=== PATIENT | female | born 1965 | race Caucasian/White ===

== ENCOUNTER 2017-11-03 12:22 | Emergency (ER) | payer OTHER ==
--- NOTE | 2017-11-03 14:12 | CT SCAN REPORT ---
EXAMINATION: CT HEAD WITHOUT CONTRAST CLINICAL INFORMATION: Headache for 2 days. COMPARISON: None. TECHNIQUE: Contiguous axial imaging was performed from the skull base to vertex without intravenous administration of contrast. DLP: 699 mGy-cm. FINDINGS: There is no intracranial hemorrhage, large infarction, or mass lesion. There is no extra-axial collection. The ventricles are normal in size and configuration without evidence of hydrocephalus. The visualized paranasal sinuses and mastoid air cells are clear. IMPRESSION: No acute intracranial abnormality.
--- NOTE | 2017-11-03 15:38 | ED HEADACHE COMPLAINT ---
History of Present Illness General Chief Complaint: Headache Stated Complaint: PEREZ X 2 DAYS Source: patient, family Exam Limitations: no limitations Vital Signs & Intake/Output Vital Signs & Intake/Output Vital Signs Date Time Temp Pulse Resp B/P B/P Pulse O2 O2 Flow FiO2 Mean Ox Delivery Rate 11/03 1604 98.1 11/03 1514 98.1 71 16 131/82 99 Room Air 11/03 1228 97.2 62 16 151/101 97 Room Air Allergies Coded Allergies: No Known Allergies (11/03/17) Triage Note: PT TO ED WITH C/O HEADACHE X 2 DAYS. +NAUSEA. DENIES PHOTOSENSITIVITY. REPORTS "BLOW TO HEAD" IN MAR 2017 WHICH SHE WAS NEVER EVALUATED FOR. TAKING MOTRIN W/O RELIEF. NEURO CHECK INTACT. Triage Nurses Notes Reviewed? yes Onset: Gradual Duration: day(s): Timing: recent history HPI: 52yo female presents to ED complaining of persistent headache since last night. Patient described headache as occipital area radiating up scalp to behind eyes bilaterally. Patient states she has had similar headache twice before within the past few months however headaches have never persisted for this long. Patient has tried tylenol, ASA, ibuprofen without relief. Patient reports associated nausea with one episode of vomiting this morning. She did have a head injury 7 months ago however no recent fall or head trauma. Patient denies blurry vision, fevers, chills, rash, paresthesias. (Miya Shields) Reconcile Medications Fiorinal (Fiorinal 50-325-40 MG Capsule) 50 MG-325 MG-40 MG CAPSULE 1 CAP PO BID PRN HEADACHE Trazodone HCl 50 MG TABLET 1 TAB PO QPM SLEEP (Reported) (Sudhakar Fox DO) Past History Travel History Traveled to [place] past 21 day No Medical History Any Pertinent Medical History? see below for history Musculoskeletal: CHRONIC BACK PAIN Psychiatric: insomnia Surgical History Surgical History: non-contributory Psychosocial History What is your primary language Northern Irish Tobacco Use: Never used Family History Hx Contributory? No (Miya Shields) Review of Systems Review of Systems Constitutional: Reports: no symptoms. Eyes: Reports: no symptoms. Ears, Nose, Throat, Mouth: Reports: no symptoms. Respiratory: Reports: no symptoms. Cardiovascular: Reports: no symptoms. Gastrointestinal/Abdominal: Reports: see HPI. Genitourinary: Reports: no symptoms. Musculoskeletal: Reports: no symptoms. Skin: Reports: no symptoms. Neurological/Psychological: Reports: see HPI. Hematologic/Endocrine: Reports: no symptoms. Endocrine: Reports: no symptoms. Immunologic/Allergic: Reports: no symptoms. All Other Systems: Reviewed and Negative (Brisa GANNON,Miya Carr) Physical Exam Physical Exam General Appearance: well developed/nourished, no apparent distress, alert, awake Head: atraumatic, normal appearance Eyes: Bilateral: normal appearance, PERRL, EOMI. Ears, Nose, Throat: normal pharynx, normal ENT inspection, hearing grossly normal Neck: normal inspection, supple, full range of motion Respiratory: normal breath sounds, no respiratory distress, lungs clear Cardiovascular: regular rate/rhythm Back: normal inspection, normal range of motion Extremities: normal inspection, normal range of motion Psychiatric: awake, alert, oriented x 3 Cranial Nerves: normal hearing, normal speech, PERRL, CN II-XII intact Coordination/Gait: normal finger to nose, normal gait Motor/Sensory: no motor/sensory deficits Skin: intact, normal color, warm/dry Core Measures Sepsis Present: No Sepsis Focused Exam Completed? No (Miya Shields) Progress Differential Diagnosis: cluster PEREZ, encephalitis, IC mass/tumor, intracranial Hem., meningitis, migraine PEREZ, musculoskeletal pain, sinusitis, subarach. Hem., tension PEREZ Plan of Care: Current Medications Sig/Denys Start time Last Medication Dose Stop Time Status Admin Acetaminophen 1,000 MG ONCE ONE 11/03 1545 UNVr (Ofirmev) 11/03 1559 N/A 1 UNIT (No Carrier) Ketorolac 30 MG ONCE ONE 11/03 1545 UNVr Tromethamine 11/03 154 (Toradol) Metoclopramide HCl 10 MG ONCE ONE 11/03 1545 UNVr (Reglan) 11/[address] scan is normal. Patient is neurologically intact, no focal neurologic deficit, she ambulates with a steady gait, she answers questions readily. Patient reports improvement in her headache following IV medications. She is requesting to go home at this time. Symptoms are most consistent with migraine headache. No fevers or rash to indicate menegitis. Patient given prescription of Fioricet that she can take at home. I recommend the patient follow up with a neurologist, she states she will go through her primary care doctor for a referral. Patient agrees with the plan of care. Diagnostic Imaging: Viewed by Me: CT Scan. Discussed w/RAD: CT Scan. Radiology Impression: PATIENT: SWATHI FISHER PRESENT AGE: 52 PATIENT ACCOUNT NO: [id number] : 65 LOCATION: [facility] ORDERING PHYSICIAN: Noble GANNON SERVICE DATE: 11/03/17 EXAM TYPE: CAT - CT HEAD WO IV CONTRAST EXAMINATION: CT HEAD WITHOUT CONTRAST CLINICAL INFORMATION: Headache for 2 days. COMPARISON: None. TECHNIQUE: Contiguous axial imaging was performed from the skull base to vertex without intravenous administration of contrast. DLP: 699 mGy-cm. FINDINGS: There is no intracranial hemorrhage, large infarction, or mass lesion. There is no extra-axial collection. The ventricles are normal in size and configuration without evidence of hydrocephalus. The visualized paranasal sinuses and mastoid air cells are clear. IMPRESSION: No acute intracranial abnormality. DICTATED BY: Mimi Stephens MD DATE/TIME DICTATED:11/03/171404 APPLIANCE ADJUSTER:FANNY DATE/TIME TRANSCRIBED:11/03/171404 CONFIDENTIAL, DO NOT COPY WITHOUT APPROPRIATE AUTHORIZATION. <Electronically signed in Other Vendor System> SIGNED BY: Mimi Stephens MD 11/03/17 1412 (Brisa GANNON,Miya Carr) Departure Departure Disposition: HOME OR SELF CARE Condition: Stable Clinical Impression Primary Impression: Headache Referrals: Carrie Reynoso MD (PCP/Family) Additional Instructions: To worsen as prescribed as needed for a headache. Follow up with your primary care doctor for referral to neurology. Return if worsening symptoms or concerns. Please note that there might be incidental findings in your evaluation that are unrelated to the current emergency department visit. Please notify your primary care doctor about this emergency department visit in order to obtain and review all of the testing performed so that these incidental findings can be monitored as needed. If you had an x-ray performed, please understand that some fractures may not be seen on the initial set of x-rays. If your symptoms persist you might need a repeat set of x-rays to check for such a fracture. If you had a laceration evaluated, please understand that foreign bodies such as glass or wood may not be visible to the naked eye or on plain x-rays. If the wound becomes red, swollen, increasingly more painful or if there is any drainage from the wound, please have it reevaluated by a physician for the possibility of a retained foreign body. If you're unable to follow up as outlined in the discharge instructions please return to the emergency department. Thank you for choosing the [facility] Emergency Department for your care. It was a pleasure to serve you today. Departure Forms: Customer Survey General Discharge Information Prescriptions: Current Visit Scripts Fiorinal (Fiorinal 50-325-40 MG Capsule) 1 CAP PO BID PRN HEADACHE #15 CAP (Brisa GANNON,Miya Carr) PA/HAND ETCHER Co-Sign Statement Statement: ED Attending supervision documentation- [] I saw and evaluated the patient. I have also reviewed all the pertinent lab results and diagnostic results. I agree with the findings and the plan of care as documented in the PA's/HAND ETCHER's documentation. [x] I have reviewed the ED Record and agree with the PA's/HAND ETCHER's documentation. [] Additions or exceptions (if any) to the PAs/HAND ETCHER's note and plan are summarized below: [] (Sudhakar Fox DO
[2017-11-03] MEDS ORDERED: TRAZODONE HCL50 M1 PO (15:39)
[2017-11-03] MEDS ORDERED: FIORINAL 50-321 EACH PO (16:38)
== END 2017-11-03 17:03 ==
LOC: ERH 12:22
DX: R51 Headache (principal); R11.2 Nausea with vomiting, unspecified
CPT/HCPCS: 96374; 96375; J0131; J1885; J2765